=== PATIENT | female | born 1985 | race African-American/Black ===

== ENCOUNTER 2019-07-13 15:07 | Emergency (ER) | payer OTHER ==
[2019-07-13 17:19] VITALS: BP 141/94
--- NOTE | 2019-07-13 17:22 | UC ---
Complaint Female HPI - HPI Summary HPI Summary: 34 yo female presents with urinary pressure and frequency for the last 3-4 days that was worse today. She has had a UTI in the past and this feels similar. She took AZO a few days ago and her symptoms completely resolved, but returned today. She has also been having some increased vaginal discharge over the last few weeks. Denies fever, abdominal pain, n/v, flank pain. - History Of Current Complaint Chief Complaint: UCGU Stated Complaint: UTI Time Seen by Provider: 07/13/19 17:22 Hx Obtained From: Patient Hx Last Menstrual Period: MIRENA Onset/Duration: Gradual Onset Severity Initially: Mild Severity Currently: Mild Pain Intensity: 4 Pain Scale Used: 0-10 Numeric - Allergies/Home Medications Allergies/Adverse Reactions: Allergies Allergy/AdvReac Type Severity Reaction Status Date / Time No Known Allergies Allergy Verified 07/13/19 17:19 Home Medications: Home Medications Levonorgestrel (Iud) [Mirena IUD] 07/13/19 [History] Pumpkin Seed Extract/Soy Germ [Azo Bladder Control Capsule] PRN 07/13/19 [ History] PMH/Surg Hx/FS Hx/Imm Hx - Additional Past Medical History Additional PMH: None - Surgical History Surgical History: Yes Surgery Procedure, Year, and Place: jalil - gallstones now. csection - Social History Alcohol Use: Occasionally Substance Use Type: Marijuana Smoking Status (MU): Current Every Day Smoker Type: Cigarettes Amount Used/How Often: 3 CIG/DAY & VAPES Length of Time of Smoking/Using Tobacco: 10 years Have You Smoked in the Last Year: Yes Household Exposure Type: Cigarettes Review of Systems All Other Systems Reviewed And Are Negative: Yes Constitutional: Positive: Negative Skin: Positive: Negative Respiratory: Positive: Negative Cardiovascular: Positive: Negative Genitourinary: Positive: Dysuria, Vaginal/Penile Discharge Neurovascular: Positive: Negative Neurological: Positive: Negative Psychological: Positive: Negative Physical Exam - Summary Physical Exam Summary: GENERAL: NAD. WDWN. No pain distress. SKIN: No rashes, sores, lesions, or open wounds. NECK: Supple. Nontender. No lymphadenopathy. CHEST: CTAB. No r/r/w. No accessory muscle use. Breathing comfortably and in no distress. CV: RRR. Without m/r/g. Pulses intact. Cap refill <2seconds ABDOMEN: Soft. NTTP. No CVA tenderness. Bowel sounds present NEURO: Alert. PSYCH: Age appropriate behavior. Triage Information Reviewed: Yes Vital Signs: Initial Vital Signs Temp 97.1 F 07/13/19 17:15 Pulse 75 07/13/19 17:15 Resp 16 07/13/19 17:15 BP 141/94 07/13/19 17:15 Pulse Ox 99 07/13/19 17:15 Vital Signs Reviewed: Yes Pelvic Exam: Positive: External Exam Normal, No Cerv. Motion Tender, No Masses, Discharge - mild thin white, Other - fishy odor. Estefania CALLE assisted with exam. Negative: Active Bleeding, Cervicitis, Lesions, Tender w/ Cervical Motion, Ulcers Complaint Female Dx - Course Course Of Treatment: UA positive - will treat with keflex for UTI. Pelvic exam with likely BV. Culture obtained for BV/yeast/GC/C. Will treat for BV at this time with flagyl and f/u with cultures. - Differential Dx/Diagnosis Provider Diagnosis: UTI (urinary tract infection), Bacterial vaginosis Discharge - Sign-Out/Discharge Documenting (check all that apply): Patient Departure All imaging exams completed and their final reports reviewed: No Studies - Discharge Plan Condition: Stable Disposition: HOME Prescriptions: Cephalexin CAP* [Keflex CAP*] 500 mg PO BID #10 cap metroNIDAZOLE [Flagyl] 500 mg PO BID #14 tablet Patient Education Materials: Bacterial Vaginosis (ED), Urinary Tract Infection in Women (ED) Referrals: Jovani Norris MD [Primary Care Provider] - Additional Instructions: If you develop a fever, shortness of breath, chest pain, new or worsening symptoms - please call your PCP or go to the ED immediately. Your blood pressure was high at todays visit. Please see your primary provider within 4 weeks for recheck and re-evaluation. - Billing Disposition and Condition Condition: STABLE Disposition: Home
[2019-07-15 13:29] LABS: Chlamydia trachomatis NAA Negative (Negative); Neisseria gonorrhoeae (GC) NAA Negative (Negative)
--- NOTE | 2019-07-15 19:44 | UC ---
- Progress Note Progress Note: call patient to advise +for BV and negative for UTI---finish Flagyl and stop Keflex- Course/Dx - Diagnoses Provider Diagnoses: UTI (urinary tract infection), Bacterial vaginosis Discharge - Sign-Out/Discharge Documenting (check all that apply): Post-Discharge Follow Up All imaging exams completed and their final reports reviewed: No Studies - Discharge Plan Condition: Stable Disposition: HOME Prescriptions: Cephalexin CAP* [Keflex CAP*] 500 mg PO BID #10 cap metroNIDAZOLE [Flagyl] 500 mg PO BID #14 tablet Patient Education Materials: Bacterial Vaginosis (ED), Urinary Tract Infection in Women (ED) Referrals: Jovani Norris MD [Primary Care Provider] - Additional Instructions: If you develop a fever, shortness of breath, chest pain, new or worsening symptoms - please call your PCP or go to the ED immediately. Your blood pressure was high at todays visit. Please see your primary provider within 4 weeks for recheck and re-evaluation. - Billing Disposition and Condition Condition: STABLE Disposition: Home
== END 2019-07-13 18:08 | disposition home or self-care (01) ==
LOC: UCEAST 15:07
DX: N39.0 Urinary tract infection, site not specified (principal); N76.0 Acute vaginitis; F17.210 Nicotine dependence, cigarettes, uncomplicated
CPT/HCPCS: 81002; 81025; 87086; 87480; 87491; 87510; 87591; 87661; 99202; G0463

== ENCOUNTER 2019-08-25 15:47 | Emergency (ER) | payer OTHER ==
[2019-08-25 16:44] VITALS: BP 135/88
--- NOTE | 2019-08-25 17:39 | UC ---
Lower Extremity/Ankle HPI - HPI Summary HPI Summary: 34 year old female with h/o ankle sprains in the past, all treated conservatively, presents with pain on lateral foot/ ankle starting friday after work. Works at [employer], standing for longer periods. Denies injury or trauma Pain worse with walking on uneven surfaces, standing for longer periods. Better with rest, ice. no PMH. Left ankle - History of Current Complaint Chief Complaint: UCLowerExtremity Stated Complaint: LEFT ANKLE PAIN Time Seen by Provider: 08/25/19 17:17 Hx Obtained From: Patient Hx Last Menstrual Period: MIRENA ?: No Onset/Duration: Sudden Onset, Lasting Days Severity Initially: Mild Severity Currently: Mild Pain Intensity: 3 Pain Scale Used: 0-10 Numeric Aggravating Factor(s): Standing, Ambulation Alleviating Factor(s): Rest, Elevation, Ice, OTC Meds Able to Bear Weight: Yes - Allergies/Home Medications Allergies/Adverse Reactions: Allergies Allergy/AdvReac Type Severity Reaction Status Date / Time No Known Allergies Allergy Verified 08/25/19 16:41 PMH/Surg Hx/FS Hx/Imm Hx Previously Healthy: Yes - Surgical History Surgical History: Yes Surgery Procedure, Year, and Place: jalil - gallstones now. csection - Family History Known Family History: Positive: Non-Contributory - Social History Alcohol Use: Rare Substance Use Type: Marijuana Substance Use Comment - Amount & Last Used: WEEKLY Smoking Status (MU): Current Every Day Smoker Type: Cigarettes Amount Used/How Often: 1-2 PER DAY Length of Time of Smoking/Using Tobacco: 10 years Have You Smoked in the Last Year: Yes Household Exposure Type: Cigarettes Review of Systems All Other Systems Reviewed And Are Negative: Yes Constitutional: Positive: Negative Musculoskeletal: Positive: Arthralgia, Decreased ROM, Myalgia Is Patient Immunocompromised?: No Physical Exam Triage Information Reviewed: Yes Appearance: Well-Appearing, No Pain Distress, Well-Nourished Vital Signs: Initial Vital Signs Temp 98.8 F 08/25/19 16:42 Pulse 88 08/25/19 16:42 Resp 18 08/25/19 16:42 BP 135/88 08/25/19 16:42 Pulse Ox 99 08/25/19 16:42 Vital Signs Reviewed: Yes Eyes: Positive: Conjunctiva Clear Musculoskeletal: Positive: Strength Intact - full AROM, ROM Intact - L ankle, Edema @ - minimal lateral midfoot, Other: - LEFT ankle: TTP over ATFL. neg squeeze test, no TTP over talus/ mortise joint. no metatarsal TTP, full ROM toes. PT 2+ Neurological Exam: Normal Neurological: Positive: Alert, Muscle Tone Normal, Other: - SITLT distal to L ankle Psychological Exam: Normal Psychological: Positive: Normal Response To Family Skin Exam: Normal Skin: Positive: Other - no open wounds or sores Lower Extremity Course/Dx - Course Course Of Treatment: Ankle Sprain, Grade I- - Naproxen/ Motrin as needed for pain, swelling, do NOT take both. - Increase rest, ice, elevate as much as possible - If no improvement within 1 week follow up with orthopedics. - ANkle brace as needed for comfort - Differential Dx/Diagnosis Provider Diagnosis: Left ankle sprain Discharge ED - Sign-Out/Discharge Documenting (check all that apply): Patient Departure All imaging exams completed and their final reports reviewed: No Studies - Discharge Plan Condition: Good Disposition: HOME Prescriptions: Naproxen [Naproxen 250 mg tab] 250 mg PO BID PRN #60 tablet PRN Reason: pain, swelling Patient Education Materials: Ankle Sprain (ED), Ankle Stirrup Splint (ED), R.I.C.E. Treatment (ED) Forms: *Work Release Referrals: Susie Schroeder MD [Primary Care Provider] - Additional Instructions: Ankle Sprain, Grade I- - Naproxen/ Motrin as needed for pain, swelling, do NOT take both. - Increase rest, ice, elevate as much as possible - If no improvement within 1 week follow up with orthopedics. - ANkle brace as needed for comfort - Billing Disposition and Condition Condition: GOOD Disposition: Home - Attestation Statements Provider Attestation: I was available for consult. This patient was seen by the ABELARDO. The patient was not presented to, seen by, or examined by me. -Marvel
== END 2019-08-25 17:48 | disposition home or self-care (01) ==
LOC: UCEAST 15:47
DX: S93.402A Sprain of unspecified ligament of left ankle, initial encounter (principal); X58.XXXA Exposure to other specified factors, initial encounter; Y92.9 Unspecified place or not applicable; F17.210 Nicotine dependence, cigarettes, uncomplicated
CPT/HCPCS: 99213; G0463

== ENCOUNTER 2022-03-14 06:09 | Inpatient (IN) ==
[2022-03-14] MEDS ORDERED: fentaNYL 100 mcg/2 ml 50 MCG/ML VIAL ONE (07:02)
[2022-03-14] MEDS ORDERED: Morphine PF AMP (0.5MG/ML) 5 MG/10 ML AMP ONE (07:02)
[2022-03-14] MEDS ORDERED: Ondansetron 4 mg VIAL 2 MG/ML 2 ml VIAL ONE (07:03)
[2022-03-14] MEDS ORDERED: Oxytocin 10 UNITS/ML 1 ML VIAL ONE ×3 (07:03→09:30)
[2022-03-14] MEDS ORDERED: Dexamethasone IV 4 MG/ML VIAL 1 ml VIAL ONE (07:03)
[2022-03-14 07:05] LABS: Hematocrit 29 % (35-47); Mean Corpuscular HGB Conc 35 g/dL (31-36); Mean Corpuscular Hemoglobin 32 pg (27-31); Mean Corpuscular Volume 92 fL (80-97); Mean Platelet Volume 6.5 fL (7.4-10.4); Platelet Count 279 10^3/uL (150-450); Red Blood Count 3.16 10^6 /uL (3.70-4.87); Red Cell Distribution Width 15 % (10-15); White Blood Count 9.4 10^3/uL (3.5-10.8)
[2022-03-14] MEDS ORDERED: Phenylephrine IV 10 MG/ML 1 ml VIAL ONE (07:08)
[2022-03-14 07:12] LABS: Urine Appearance Cloudy; Urine Bilirubin Negative (Negative); Urine Blood Negative (Negative); Urine Color Yellow; Urine Glucose Negative (Negative); Urine Ketones Trace (Negative); Urine Nitrite Negative (Negative); Urine Protein Negative (Negative); Urine Specific Gravity 1.016 (1.002-1.030); Urine Urobilinogen Negative (Negative)
[2022-03-14 07:28] LABS: Schistocytes ABSENT
[2022-03-14 07:29] LABS: Activated Partial Thrombo Time 33.3 seconds (26.0-38.0); Fibrinogen 391.8 mg/dL (110.8-404.3); INR 0.99 (0.86-1.15)
[2022-03-14 07:30] LABS: Pathologist Review NO; Platelet Count 279 10^3/ul (150-450)
[2022-03-14] MEDS ORDERED: ceFOXitin 2 GM IVPREMIX 2 GM/50 ML BAG ONE (07:36)
[2022-03-14] MEDS ORDERED: Sodium Citrate/Citric Acid LIQ 15 ML UDC ONE (07:45)
[2022-03-14 07:56] LABS: Albumin 3.4 g/dL (3.2-5.2); Calcium 8.9 mg/dL (8.6-10.3); Potassium 4.1 mmol/L (3.5-5.0); Total Bilirubin 0.3 mg/dL (0.2-1.0)
[2022-03-14 07:57] LABS: Albumin 3.3 g/dL (3.2-5.2); Albumin/Globulin Ratio 1.3 (1-3); Calcium 8.8 mg/dL (8.6-10.3); Globulin 2.6 g/dL (2-4); Potassium 3.8 mmol/L (3.5-5.0); Total Bilirubin 0.3 mg/dL (0.2-1.0); Total Protein 5.9 g/dL (6.4-8.9); Uric Acid 5.1 mg/dL (2.3-6.6); eGFR CKD-EPI 121.8 (>60)
[2022-03-14 08:03] LABS: Albumin/Globulin Ratio 1.3 (1-3); Globulin 2.7 g/dL (2-4); Total Protein 6.1 g/dL (6.4-8.9); eGFR CKD-EPI 121.2 (>60)
[2022-03-14] MEDS ORDERED: Heparin 5000 UNITS/ML 1 mL VIAL ONE (08:54)
[2022-03-14] MEDS ORDERED: Heparin 5000 UNITS/ML 1 mL VIAL SUBCUT ONE (09:03)
[2022-03-14] MEDS ORDERED: ceFOXitin 1 GM in NS 0.9% 50 ML BAG IVPB ONE (09:03)
[2022-03-14] MEDS ORDERED: Ondansetron 4 mg VIAL 2 MG/ML 2 ml VIAL IV PRN (09:24)
[2022-03-14] MEDS ORDERED: Naloxone 0.4 mg VIAL 0.4 mg/ml 1 ml VIAL IV PRN (09:24)
[2022-03-14] MEDS ORDERED: diPHENhydraMINE IV 50 MG/ML 1 ml VIAL (BENADRYL) IV PRN (09:24)
[2022-03-14] MEDS ORDERED: DiMENhydriNATE IV 50 mg/ml 1 ml VIAL IV PUSH PRN (09:24)
[2022-03-14] MEDS ORDERED: Acetaminophen IV 1 GM/100ML 100 ML IV ONE (09:34)
[2022-03-14] MEDS: Oxytocin in LR 20 UNITS/1,000 ML BAG IVPB SCH ×2 (09:45→13:37)
[2022-03-14] MEDS ORDERED: Witch Hazel PAD JAR TOPICAL PRN (09:50)
[2022-03-14] MEDS ORDERED: Dibucaine 1% OINT 28.35 GM TUBE PR PRN (09:50)
[2022-03-14] MEDS ORDERED: Glycerin ADULT 2.4 gm SUPP PR PRN (09:50)
[2022-03-14] MEDS ORDERED: Lactated Ringers 1000 ml BAG 1,000 ML IV SCH (10:00)
[2022-03-14 15:52] LABS: Urine Appearance Clear; Urine Bilirubin Negative (Negative); Urine Blood Negative (Negative); Urine Color Yellow; Urine Glucose Negative (Negative); Urine Ketones 1+ (Negative); Urine Nitrite Negative (Negative); Urine Protein Negative (Negative); Urine Urobilinogen Negative (Negative)
[2022-03-14 16:29] LABS: Urine Benzodiazepine Screen None Detected (None Detect); Urine Cannabinoids Screen Presumptive Positive (None Detect); Urine Opiates Screen None Detected (None Detect)
[2022-03-14] MEDS ORDERED: Heparin 5000 UNITS/ML 1 mL VIAL SUBCUT SCH (21:00)
[2022-03-15 06:30] LABS: ABS Eosinophils 0.2 10^3/ul (0-0.6); ABS Lymphocytes 1.7 10^3/ul (1.0-4.8); ABS Monocytes 0.7 10^3/ul (0-0.8); ABS Neutrophils 9.7 10^3/ul (1.5-7.7); Eosinophil % 1.3 %; Hematocrit 26 % (35-47); Hemoglobin 8.9 g/dL (12.0-16.0); Lymphocyte % 14.1 %; Mean Corpuscular HGB Conc 34 g/dL (31-36); Mean Corpuscular Hemoglobin 32 pg (27-31); Mean Corpuscular Volume 93 fL (80-97); Mean Platelet Volume 6.2 fL (7.4-10.4); Platelet Count 254 10^3/uL (150-450); Red Blood Count 2.82 10^6 /uL (3.70-4.87); Red Cell Distribution Width 15 % (10-15); White Blood Count 12.3 10^3/uL (3.5-10.8)
[2022-03-16 19:48] VITALS: BP 142/78
== END 2022-03-17 11:05 | disposition home or self-care (01) | DRG 788 ==
LOC: MCHOB 06:09
PROVIDERS: ADMIT Obstetrics & Gynecology; ATTEND Obstetrics & Gynecology